=== PATIENT | male | born 1970 | race Caucasian/White ===

== ENCOUNTER 2016-12-01 16:11 | Emergency (ER) | payer BC ==
[~2016-12-01] VITALS: Ht 160 cm; Wt 87.1 kg
[2016-12-01 16:46] VITALS: BP 127/76
[2016-12-01] MEDS ORDERED: ONDANSETRON HCL 4 MG/2 ML VIAL IM ONE (17:30)
[2016-12-01] MEDS ORDERED: HYDROmorphone HCL 2 MG/ML VL IM ONE (17:30)
== END 2016-12-01 19:35 | disposition home or self-care (01) ==
LOC: ER 16:19
DX: S40.011A Contusion of right shoulder, initial encounter (principal); R07.81 Pleurodynia; M25.551 Pain in right hip; V98.8XXA Other specified transport accidents, initial encounter; Y93.89 Activity, other specified; Y99.8 Other external cause status; Y92.488 Other paved roadways as the place of occurrence of the external cause
CPT/HCPCS: 71101; 72040; 73000; 73030; 96372; 99284; J1170; J2405